=== PATIENT | female | born 1975 | race Caucasian/White ===

== ENCOUNTER 2016-08-03 18:00 | Emergency (ER) | payer MEDICAID, OTHER ==
[~2016-08-03] VITALS: Ht 157.5 cm; Wt 58.0 kg
[2016-08-03 18:03] VITALS: Ht 157.5 cm; Wt 58.0 kg
[2016-08-03] MEDS ORDERED: LIDOCAINE/MYLANTA 40 ML BTL PO STA (19:34)
[2016-08-03] MEDS ORDERED: BELLADONNA/PHENOBARBITAL TAB PO STA (19:34)
[2016-08-03] MEDS ORDERED: ONDANSETRON (ODT) 4 MG TAB ODT STA (19:34)
[2016-08-03] MEDS ORDERED: FAMOTIDINE 20 MG TAB PO STA (19:34)
[2016-08-03 19:57] LABS: ADD SCAN DIFF NO
[2016-08-03 19:59] LABS: BASOPHIL # 0.1 10^3/ul (0.0-0.1); BASOPHILS % 0.5 % (0.0-2.0); EOSINOPHILS % 0.2 % (0.0-7.0); HEMATOCRIT 37.3 % (37.0-47.0); LYMPHOCYTES % 7.4 % (15.0-51.0); MEAN CORPUSCULAR HEMOGLOBIN 31.6 pg (29.0-33.0); MEAN CORPUSCULAR HGB CONC 34.9 g/dl (32.0-37.0); MEAN CORPUSCULAR VOLUME 90.8 fl (82.0-101.0); MEAN PLATELET VOLUME 11.1 fl (7.4-10.4); MONOCYTE # 0.4 10^3/ul (0.3-0.9); MONOCYTES % 3.2 % (0.0-11.0); NEUTROPHIL # 11.7 10^3/ul (1.6-7.5); NEUTROPHILS % 88.3 % (39.0-77.0); PLATELET COUNT 264 10^3/UL (140-415); RED BLOOD COUNT 4.11 10^6/ul (4.20-5.40); RED CELL DISTRIBUTION WIDTH 12.5 % (11.5-14.5); WHITE BLOOD COUNT 13.2 10^3/ul (4.8-10.8)
[2016-08-03 20:17] LABS: ADD UMIC YES; ALBUMIN 5.1 g/dl (3.3-4.9); ALBUMIN/GLOBULIN RATIO 1.59; BILIRUBIN,INDIRECT 0.4 mg/dl (0-1.1); BILIRUBIN,TOTAL 0.4 mg/dl (0.2-1.3); CALCIUM 9.2 mg/dl (8.4-10.2); CREATININE 0.53 mg/dl (0.44-1.00); POTASSIUM 3.8 mmol/L (3.5-5.1); TOTAL PROTEIN 8.3 g/dl (6.1-8.1); URINE BILIRUBIN (Dip) NEGATIVE (NEGATIVE); URINE BLOOD (Dip) 3+ (NEGATIVE); URINE COLOR LT. YELLOW (YELLOW); URINE GLUCOSE (Dip) NEGATIVE (NEGATIVE); URINE KETONES (Dip) TRACE (NEGATIVE); URINE LEUKOCYTE ESTERASE (Dip) NEGATIVE (NEGATIVE); URINE NITRITE (Dip) NEGATIVE (NEGATIVE); URINE TOTAL PROTEIN (Dip) 1+ (NEGATIVE); URINE UROBILINOGEN (Dip) 1.0 E.U./dL (0.1-1.0)
[2016-08-03 20:44] LABS: BACTERIA,URINE FEW; SQUAMOUS EPITHELIAL CELL,UR MODERATE
[2016-08-03] MEDS ORDERED: HYDROCODONE/APAP (5/325) TAB PO ONE (21:00)
--- NOTE | 2016-08-03 21:30 | RADRPT ---
PROCEDURE: Right upper quadrant abdominal ultrasound. CLINICAL INDICATION: Abdominal pain TECHNIQUE: Haskins scale and color doppler ultrasound images of the right upper quadrant. COMPARISON: None FINDINGS: Pancreas: Not adequately visualized due to overlying bowel gas. Liver: Morphology: Normal in size and contour. Echogenicity: Normal. Focal lesions: None. Main portal vein: Patent with hepatopetal flow. Biliary System: Gallbladder wall thickness visualization is degraded due to the extensive number gallstones within. Multiple gallstones are present within the gallbladder. No intrahepatic biliary dilatation. Common bile duct measures 4.2 mm in maximal dimension. Kidneys: Right 9.7 cm in length. Right renal cortical thickness is preserved. Normal echogenicity. No hydronephrosis. No renal calculi. No focal lesions. No free fluid identified. IMPRESSION: Gallbladder appears completely filled with gallstones. No intrahepatic or extrahepatic biliary dilatation. Degraded visualization of the gallbladder wall due to the large number of gallstones. Early cholecy stitis cannot be completely excluded. HIDA scan can be obtained for further evaluation. RPTAT: AADD .Anthony Asher MD, MD Date Time Electronically viewed and signed by .Anthony Asher MD, on 08/03/2016 21:30 .B/
[2016-08-03] MEDS ORDERED: HYDR-906 PO (21:36)
[2016-08-03] MEDS ORDERED: IBUP-1542 PO (21:37)
[2016-08-03] MEDS ORDERED: ONDA-43 PO (21:37)
[2016-08-03] MEDS ORDERED: KETOROLAC 60 MG INJ IM STA (21:50)
[2016-08-03 22:14] VITALS: BP 111/65; PULSE 69; RESP 18; TEMP 98.1
--- NOTE | 2016-08-03 22:32 | ERD ---
ER Documentation Chief Complaint Date/Time DATE: 08/03/16 TIME: 22:28 Chief Complaint AP WITH VOMITING SINCE LAST NIGHT HPI This is a 40-year-old female that presents to the ER with epigastric pain that radiates to right upper quadrant started last night. Epigastric pain is sharp and severe it is intermittent. She admits to nonbilious nonbloody vomiting. She denies any diarrhea. She has not had any fevers or chills. Patient has not traveled anywhere and there are no sick contacts at home. She denies any urinary frequency or dysuria. She denies any chest pain or shortness of breath. ROS 12 point review of systems was done, all negative except per HPI. Medications Home Meds Active Scripts Ondansetron Hcl* (Zofran*) 4 Mg Tab, 4 MG PO Q4H Y for NAUSEA AND OR VOMITING for 3 Days, TAB Prov:YOUSUF,BELINDA C 08/03/16 Ibuprofen* (Ibuprofen*) 600 Mg Tablet, 600 MG PO Q6 for 3 Days, TAB Prov:YOUSUFBELINDA C 08/03/16 Hydrocodone/Acetaminophen ([place] 5-325 Tablet) 1 Each Tablet, 1 TAB PO Q6H Y for PAIN, #20 TAB Prov:YOUSUF,BELINDA C 08/03/16 Allergies Allergies: Coded Allergies: No Known Allergy (Unverified , 08/03/16) PMhx/Soc Medical and Surgical Hx: pt denies Medical Hx Hx Alcohol Use: No Hx Substance Use: No Hx Tobacco Use: No Physical Exam Vitals Vital Signs Date Time Temp Pulse Resp B/P Pulse Ox O2 Delivery O2 Flow Rate FiO2 08/03/16 22:14 98.1 69 18 111/65 99 Room Air 08/03/16 18:03 98.1 86 18 109/57 99 Physical Exam GENERAL: The patient is well developed and appropriate for usual state of health , in no apparent distress. HEENT: Atraumatic. CHEST: Clear to auscultation bilaterally. There are no rales, wheezes or rhonchi. HEART: Regular rate and rhythm. No murmurs, clicks, rubs or gallops. ABDOMEN: soft ttp in the RUQ . Good bowel sounds. No rebound or guarding. No gross peritonitis. No gross organomegaly or masses. No Mcguire sign or McBurney point tenderness. NEURO: Alert and oriented. SKIN: There is no apparent rash or petechia. The skin is warm and dry. Result Diagram: 08/03/16194408/03/161944 Results 24 hrs Laboratory Tests Test 08/03/16 19:45 White Blood Count 13.210^3/ul Red Blood Count 4.1110^6/ul Hemoglobin 13.0g/dl Hematocrit 37.3% Mean Corpuscular Volume 90.8fl Mean Corpuscular Hemoglobin 31.6pg Mean Corpuscular Hemoglobin Concent 34.9g/dl Red Cell Distribution Width 12.5% Platelet Count 41027^3/UL Mean Platelet Volume 11.1fl Neutrophils % 88.3% Lymphocytes % 7.4% Monocytes % 3.2% Eosinophils % 0.2% Basophils % 0.5% Nucleated Red Blood Cells % 0.0/100WBC Neutrophils # 11.710^3/ul Lymphocytes # 1.010^3/ul Monocytes # 0.410^3/ul Eosinophils # 0.010^3/ul Basophils # 0.110^3/ul Nucleated Red Blood Cells # 0.010^3/ul Urine Color LT. YELLOW Urine Clarity CLEAR Urine pH 7.5 Urine Specific [place] 1.015 Urine Ketones TRACE Urine Nitrite NEGATIVE Urine Bilirubin NEGATIVE Urine Urobilinogen 1.0 E.U./dL Urine Leukocyte Esterase NEGATIVE Urine Microscopic RBC 10-25/HPF Urine Microscopic WBC 2-5/HPF Urine Squamous Epithelial Cells MODERATE Urine Bacteria FEW Urine Hemoglobin 3+ Urine Glucose NEGATIVE% Urine Total Protein 1+ Sodium Level 139mmol/L Potassium Level 3.8mmol/L Chloride Level 103mmol/L Carbon Dioxide Level 27mmol/L Anion Gap 13 Blood Urea Nitrogen 15mg/dl Creatinine 0.53mg/dl Glucose Level 112mg/dl Calcium Level 9.2mg/dl Total Bilirubin 0.4mg/dl Direct Bilirubin 0.00mg/dl Indirect Bilirubin 0.4mg/dl Aspartate Amino Transf (AST/SGOT) 31IU/L Alanine Aminotransferase (ALT/SGPT) 31IU/L Alkaline Phosphatase 79IU/L Total Protein 8.3g/dl Albumin 5.1g/dl Globulin 3.20g/dl Albumin/Globulin Ratio 1.59 Lipase 72U/L Current Medications Medications (Trade) Dose Ordered Sig/Rajan Route PRN Reason Start Time Stop Time Status Last Admin Dose Admin Famotidine (Pepcid) 20 mg ONCE STAT PO 08/03/16 19:34 08/03/16 19:37 DC 08/03/16 19:44 Miscellaneous Medication (Gi Cocktail (2)) 40 ml ONCE STAT PO 08/03/16 19:34 08/03/16 19:37 DC 08/03/16 19:44 Belladonna/ Phenobarbital () 2 tab ONCE STAT PO 08/03/16 19:34 08/03/16 19:37 DC 08/03/16 19:44 Ondansetron HCl (Zofran Odt) 4 mg ONCE STAT ODT 08/03/16 19:34 08/03/16 19:37 DC 08/03/16 19:44 Acetaminophen/ Hydrocodone Bitart ([place] (5/325)) 1 tab ONCE ONCE PO 08/03/16 21:00 08/03/16 21:01 DC 08/03/16 21:00 Ketorolac Tromethamine (Toradol) 60 mg ONCE STAT IM 08/03/16 21:50 08/03/16 21:51 DC 08/03/16 21:58 Procedures/MDM EKG 69bpm no ST elevation or t wave inversion Differential Diagnosis: GERD, gastritis, peptic ulcer disease, pancreatitis, cholecystitis, choledocholithiasis, biliary colic, cholangitis, Tywo-Xhfa-Stejob , ACS/MA, Pnuemonia. Patient does have gallstones. At this time I doubt acute cholecystitis as there is no gallbladder wall thickening, elevation in AST or ALT or lipase. She does have a slight elevation in her white blood cells likely attributed to stress reaction from vomiting. Patient is able to tolerate p.o. fluids. Patient is afebrile and well-appearing. Patient needs to f/u with her PCP within 1-2 days or return to ER sooner if symptoms worsen. I discussed with patient following up with the surgeon as soon as possible. My medical decision making was shared with the patient she understands and agrees with plan. Departure Diagnosis: Primary Impression: Gallstones Condition: Stable Patient Instructions: Gallstones Additional Instructions: Llame al doctor KENDAL y angy brian HOLLIE PARA DENTRO DE 1-2 ROMAN.Dgale a la secretaria que nosotros le instruimos hacer esta hollie.Avise o llame si thomas condicin se empeora antes de la hollie. Regresa aqui si peor o no mejor. BELINDA TO Aug 03, 2016 22:32
== END 2016-08-03 21:38 | disposition home or self-care (01) ==
LOC: FTE 18:00
DX: K80.20 Calculus of gallbladder without cholecystitis without obstruction (principal); R11.10 Vomiting, unspecified
CPT/HCPCS: 76705; 80053; 81001; 83690; 85025; 93005; J1885; Z7610; 36415; 96372

== ENCOUNTER 2017-08-24 16:18 | Emergency (ER) | END 2017-08-24 18:54 | disposition home or self-care (01) ==

== ENCOUNTER 2018-05-08 12:50 | Emergency (ER) | payer MEDICAID ==
[~2018-05-08] VITALS: Wt 55.6 kg
[~2018-05-08 12:50] MED LIST: HYDR-4011 PO; IBUP-1542 PO; IBUP-1561 PO; OMEP40CA6 PO; ONDA4TAB13 PO; RANI150T35 PO
[2018-05-08] MEDS ORDERED: BELLADONNA/PHENOBARBITAL TAB PO STA (13:56)
[2018-05-08] MEDS ORDERED: IBUPROFEN 600 MG TAB PO ONE (14:00)
--- NOTE | 2018-05-08 14:06 | ERD ---
ER Documentation Chief Complaint Chief Complaint bib self, cc: abd. pain and n/v since this morning HPI 42-year-old female no significant past medical surgical history presents with 1 day complaint of abdominal pain with nausea and vomiting since this morning. Describes pain as a sharp midepigastric pain without radiation. Last menstrual period was this weekend and reported as normal and she does not think that she is currently . Denies history of UTIs, UTIs or pyelonephritis. Reported eating her normal home cooked meal of soup and steak last night did not have breakfast this morning secondary to nausea. She otherwise denies fevers, cough, URI type symptoms,urinary symptoms. ROS All systems reviewed and are negative except as per history of present illness. Medications Home Meds Active Scripts Hydrocodone/Acetaminophen ([place] 5-325 Tablet) 1 Each Tablet, 1 TAB PO Q6H PRN for PAIN, #7 TAB Prov:BENJI MENEZES PA-C 05/08/18 Ondansetron (Ondansetron Odt) 8 Mg Tab.rapdis, 8 MG PO Q6H PRN for NAUSEA AND/OR VOMITING for 7 Days, #14 TAB Prov:BENJI MENEZES PA-C 05/08/18 Hydrocodone/Acetaminophen ([place] 5-325 Tablet) 1 Each Tablet, 1 EACH PO Q6 for 7 Days, TAB Prov:BENJI MENEZES PA-C 05/08/18 Ibuprofen* (Motrin*) 400 Mg Tab, 400 MG PO Q8, #15 TAB Prov:GIL MARQUIS MD 08/24/17 Ranitidine Hcl* (Zantac*) 150 Mg Tablet, 150 MG PO BID PRN for EPIGASTRIC PAIN, #30 TAB Prov:GIL MARQUIS MD 08/24/17 Omeprazole* (Omeprazole*) 40 Mg Capsule.dr, 40 MG PO DAILY, #30 CAP Prov:GIL MARQUIS MD 08/24/17 Ondansetron Hcl* (Zofran*) 4 Mg Tab, 4 MG PO Q4H PRN for NAUSEA AND OR VOMITING for 3 Days, TAB Prov:BELINDA TO 08/03/16 Ibuprofen* (Ibuprofen*) 600 Mg Tablet, 600 MG PO Q6 for 3 Days, TAB Prov:BELINDA TO 08/03/16 Hydrocodone/Acetaminophen ([place] 5-325 Tablet) 1 Each Tablet, 1 TAB PO Q6H PRN for PAIN, #20 TAB Prov:BELINDA TO 08/03/16 Allergies Allergies: Coded Allergies: No Known Allergy (Unverified , 08/03/16) PMhx/Soc History of Surgery: Yes ( X 1 ) Anesthesia Reaction: No Hx Neurological Disorder: No Hx Respiratory Disorders: No Hx Cardiac Disorders: No Hx Psychiatric Problems: No Hx Miscellaneous Medical Probl: No Hx Alcohol Use: No Hx Substance Use: No Hx Tobacco Use: No Smoking Status: Never smoker FmHx Family History: No diabetes, No coronary disease, No other Physical Exam Vitals Vital Signs Date Temp Pulse Resp B/P (MAP) Pulse Ox O2 O2 Flow FiO2 Time Delivery Rate 05/08/18 97.8 51 18 104/57 100 Room Air 17:40 (73) 05/08/18 98.1 89 22 121/50 100 12:56 (73) Physical Exam I have reviewed the triage vital signs. Const: Well nourished, well developed, appears stated age Eyes: PERRL, no conjunctival injection HENT: NCAT, Neck supple without meningismus CV: RRR, Warm, well-perfused extremities RESP: CTAB, Unlabored respiratory effort GI: soft, tenderness to deep palp to mid epigastrium and RUQ, non-distended, no masses, no pelvic tenderness, no flank tenderness MSK: No gross deformities appreciated Skin: Warm, dry. No rashes Neuro: Alert, grossly non focal Psych: Appropriate mood and affect. Result Diagram: 05/08/18 1500 05/08/18 1500 Results 24 hrs Laboratory Tests Test 05/08/18 14:42 05/08/18 14:43 05/08/18 15:00 Bedside Urine pH (LAB) 5.5 Bedside Urine Protein (LAB) 1+ Bedside Urine Glucose (UA) Negative Bedside Urine Ketones (LAB) Negative Bedside Urine Blood 3+ Bedside Urine Nitrite (LAB) Negative Bedside Urine Leukocyte Esterase Negative (L POC Beta HCG, Qualitative NEGATIVE White Blood Count 9.6 10^3/ul Red Blood Count 4.05 10^6/ul Hemoglobin 12.5 g/dl Hematocrit 36.8 % Mean Corpuscular Volume 90.9 fl Mean Corpuscular Hemoglobin 30.9 pg Mean Corpuscular 34.0 g/dl Hemoglobin Concent Red Cell Distribution Width 12.2 % Platelet Count 247 10^3/UL Mean Platelet Volume 10.7 fl Immature Granulocytes % 0.400 % Neutrophils % 90.2 % Lymphocytes % 5.7 % Monocytes % 3.0 % Eosinophils % 0.1 % Basophils % 0.6 % Nucleated Red Blood Cells % 0.0 /100WBC Immature Granulocytes # 0.040 10^3/ul Neutrophils # 8.6 10^3/ul Lymphocytes # 0.6 10^3/ul Monocytes # 0.3 10^3/ul Eosinophils # 0.0 10^3/ul Basophils # 0.1 10^3/ul Nucleated Red Blood Cells # 0.0 10^3/ul Sodium Level 140 mmol/L Potassium Level 3.6 mmol/L Chloride Level 104 mmol/L Carbon Dioxide Level 25 mmol/L Anion Gap 11 Blood Urea Nitrogen 14 mg/dl Creatinine 0.53 mg/dl Est Glomerular Filtrat Rate mL/min > 60 mL/min Glucose Level 110 mg/dl Calcium Level 9.0 mg/dl Total Bilirubin 0.4 mg/dl Direct Bilirubin 0.00 mg/dl Indirect Bilirubin 0.4 mg/dl Aspartate Amino Transf (AST/SGOT) 25 IU/L Alanine 26 IU/L Aminotransferase (ALT/SGPT) Alkaline Phosphatase 82 IU/L Total Protein 8.3 g/dl Albumin 4.4 g/dl Globulin 3.90 g/dl Albumin/Globulin Ratio 1.12 Lipase 57 U/L Current Medications Medications Dose Sig/Rajan Start Time Status Last (Trade) Ordered Route PRN Stop Time Admin Dose Reason Admin Belladonna/ 2 tab ONCE STAT 05/08/18 DC 05/08/18 Phenobarbital PO 13:56 14:13 () 05/08/18 14:00 Ibuprofen 600 mg ONCE ONCE 05/08/18 DC 05/08/18 (Motrin) PO 14:00 14:13 05/08/18 14:01 40 ml ONCE STAT 05/08/18 DC 05/08/18 Miscellaneous PO 14:08 14:13 Medication 05/08/18 14:45 (Gi Cocktail (2)) Ondansetron 4 mg ONCE STAT 05/08/18 DC 05/08/18 HCl (Zofran ODT 14:12 14:16 Odt) 05/08/18 16:02 Sodium 1,000 ml @ Q1H STAT 05/08/18 DC 05/08/18 Chloride 1,000 mls/hr IV 14:46 15:09 05/08/18 15:45 Morphine 4 mg ONCE STAT 05/08/18 DC 05/08/18 Sulfate IV 14:46 15:10 (morphine) 05/08/18 14:50 Famotidine 20 mg ONCE STAT 05/08/18 DC 05/08/18 (Pepcid Iv) IV 14:46 15:09 05/08/18 14:50 Dicyclomine 10 mg ONCE ONCE 05/08/18 DC 05/08/18 HCl PO 16:00 16:26 (Bentyl) 05/08/18 16:01 Ketorolac 30 mg ONCE STAT 05/08/18 DC 05/08/18 Tromethamine IV 15:58 16:27 (Toradol) 05/08/18 15:59 Ondansetron 4 mg ONCE STAT 05/08/18 DC HCl (Zofran ODT 16:01 Odt) 05/08/18 16:23 Ondansetron 4 mg ONCE STAT 05/08/18 DC 05/08/18 HCl (Zofran IV 16:01 16:26 Inj) 05/08/18 16:02 Ondansetron 8 mg ONCE STAT 05/08/18 DC HCl (Zofran ODT 17:42 Odt) 05/08/18 17:43 Procedures/MDM patient presents with abdominal pain ML 2/2 cholelithiasis without evidence of infection. No abdominal bruits, no h/o alcohol abuse, no CVA tenderness, no h/o diverticula or bloody stool. Pt having flatus and nml BMs. Pt nontoxic in appearance w nml vitals. Unlikely AAA, pancreatitis, SBO, appendicitis, mesenteric ischemia, nephrolithiasis, pyelonephritis, or diverticulitis. Plan analgesia PRN Plan CBC, BMP, LFTs, Lipase all wnl. Abdominal US with evidence of choleli thiasis with noted 8 mm stone but no cholecystitis. UA unremarkable urine negative Patient's gastrointestinal symptoms have stabilized while in the department. No evidence of severe dehydration, sepsis, or surgical abdomen. Extensive discussion with family and patient that occult disease cannot be ruled out. Patient has been advised to follow up with PMD and discuss referral to general surgery for evaluation. Instructed if symptoms do not improve or she develop signs and symptoms of infection to proceed to nearest emergency room. Departure Condition: Stable Patient Instructions: Nausea and Vomiting-Adult BENJI MENEZES PA-C May 08, 2018 14:06
[2018-05-08] MEDS ORDERED: LIDOCAINE/MYLANTA 40 ML BTL PO STA (14:08)
[2018-05-08] MEDS ORDERED: ONDANSETRON (ODT) 4 MG TAB ODT STA ×3 (14:12→17:42)
[2018-05-08] MEDS ORDERED: SOD CHLORIDE 0.9% 1,000 ML IV STA (14:46)
[2018-05-08] MEDS ORDERED: FAMOTIDINE 20 MG INJ IV STA (14:46)
[2018-05-08] MEDS ORDERED: morphine 4 MG/ML VIAL IV STA (14:46)
[2018-05-08] MEDS ORDERED: ONDA8TAB14 PO (15:48)
[2018-05-08] MEDS ORDERED: HYDR-4011 PO ×2 (15:48→19:09)
[2018-05-08] MEDS ORDERED: KETOROLAC 30 MG INJ IV STA (15:58)
[2018-05-08] MEDS ORDERED: DICYCLOMINE 10 MG CAP PO ONE (16:00)
[2018-05-08] MEDS ORDERED: ONDANSETRON 4 MG INJ IV STA (16:01)
[2018-05-08 17:40] VITALS: BP 104/57; PULSE 51; RESP 18
== END 2018-05-08 18:05 | disposition home or self-care (01) ==
LOC: FTE 12:50
DX: R10.13 Epigastric pain (principal); R11.2 Nausea with vomiting, unspecified
CPT/HCPCS: 36415; 76705; 80053; 81003; 81025; 83690; 85025; 96361; 96374; 96375; J1885; J2270; J2405; J7030; Z7502; Z7610